=== PATIENT | female | born 1940 | race Caucasian/White ===

== ENCOUNTER 2020-04-28 16:50 | Emergency (ER) | payer MEDICARE, OTHER ==
[~2020-04-28] VITALS: Ht 162.6 cm; Wt 63.5 kg
[2020-04-28 16:52] VITALS: BP 160/53
--- NOTE | 2020-04-28 16:52 | NUR ---
79 YEAR OLD FEMALE BIBA FROM HOME FOR GENERALIZED BODY WEAKNESS FOR THE PAST COUPLE OF WEEKS. PT STATES THAT SHE HAD AN EPISODE OF WEAKNESS THAT WAS MUCH WORSE TODAY, AND VOMITTED SHORTLY AFTER. PT DENIES NAUSEA AT THIS TIME. PT DENIES ABDOMINAL PAIN. PT AOX4, BREATHING EVEN AND UNLABORED, SKIN WARM AND DRY. BED IN LOWEST POSITION, LOCKED, BED RAIL UPX1. PMH - COPD, OA, THROMBOMYALGIA ALLERGIES - NKA
[2020-04-28] MEDS ORDERED: cefTRIAXone 1,000 MG in DEXT 5% MINI-BAG PLUS 50 ML IV ONE (16:55)
--- NOTE | 2020-04-28 16:55 | NUR ---
BIBA TO BED 3.
--- NOTE | 2020-04-28 17:02 | NUR ---
WILLARD SWAB SENT TO LAB
[2020-04-28] MEDS ORDERED: cefTRIAXone 1,000 MG VIAL ONE (17:04)
[2020-04-28 17:20] LABS: BASOPHILS # (AUTO) 0.1 K/uL (0.00-0.22); EOSINOPHILS # (AUTO) 0.4 K/uL (0-0.4); EOSINOPHILS % (AUTO) 4.5 % (0.0-4.0); HEMATOCRIT 37.8 % (36-48); HEMOGLOBIN 12.6 g/dL (12.0-16.0); LYMPHOCYTES # (AUTO) 0.9 K/uL (2.5-16.5); LYMPHOCYTES % (AUTO) 11.5 % (20.5-51.1); MEAN CORPUSCULAR HEMOGLOBIN 29 pg (27-31); MEAN CORPUSCULAR HGB CONC 34 g/dL (33-37); MEAN CORPUSCULAR VOLUME 87.6 fL (80-94); MONOCYTES # (AUTO) 1.4 K/uL (0.8-1.0); MONOCYTES % (AUTO) 17.6 % (1.7-9.3); NEUTROPHILS # (AUTO) 5.4 K/uL (1.8-7.7); NEUTROPHILS % (AUTO) 65.4 % (42.2-75.2); PLATELET COUNT (AUTO) 436 K/uL (140-450); RED BLOOD CELL COUNT(AUTO) 4.31 MIL/uL (4.20-5.40); RED CELL DISTRIBUTION WIDTH 12.9 % (11.6-13.7); WHITE BLOOD COUNT (AUTO) 8.2 K/uL (4.8-10.8)
[2020-04-28] MEDS ORDERED: LORazepam 2 MG/ML VIAL IVP ONE (17:40)
--- NOTE | 2020-04-28 17:40 | NUR ---
PT UNABLE TO URINATE, ERMD MADE AWARE
[2020-04-28 17:43] LABS: ALBUMIN 3.3 g/dL (3.4-5.0); ASPARTATE AMINOTRANSFERASE 17 U/L (15-37); CARBON DIOXIDE 24.9 mmol/L (21-32); CHLORIDE 98 mmol/L (98-107); CREATININE 0.9 mg/dL (0.6-1.3); GLUCOSE 127 mg/dL (74-106); POTASSIUM 3.9 mmol/L (3.5-5.1); SODIUM SERUM 135 mmol/L (136-145); TOTAL BILIRUBIN 0.3 mg/dL (0.0-1.0); UREA NITROGEN, BLOOD 16 mg/dL (7-18)
--- NOTE | 2020-04-28 18:21 | NUR ---
PT STILL UNABLE TO URINATE, ERMD AWARE
--- NOTE | 2020-04-28 18:23 | NUR ---
PT ALERT AND AWAKE, BREATHING EVEN AND UNLABORED. NO DISTRESS NOTED. PT ON PHONE WITH FAMILY
[2020-04-28] MEDS ORDERED: NACL 0.9% 1,000 ML IV ONE (18:30)
[2020-04-28 18:57] LABS: APPEARANCE,URINE CLEAR (CLEAR); BILIRUBIN,URINE 1+ (NEGATIVE); BLOOD, URINE NEGATIVE (NEGATIVE); COLOR,URINE YELLOW (YELLOW); LEUKOCYTE ESTERASE ,URINE NEGATIVE (NEGATIVE); NITRITE, URINE NEGATIVE (NEGATIVE); PH,URINE 6.5 (5.0-9.0); UGLUCOSE NEGATIVE (NEGATIVE)
--- NOTE | 2020-04-28 19:14 | NUR ---
REPORT GIVEN TO NARENDRA MADRIGAL, TRANSFER OF CARE AT THIS TIME.
--- NOTE | 2020-04-28 19:14 | NUR ---
REPORT RECEIVED FROM ROBERTA MADRIGAL FOR CONTINUITY OF CARE
[2020-04-28 20:22] VITALS: BP 168/97
--- NOTE | 2020-04-28 20:22 | NUR ---
Patient discharged with v/s stable. Written and verbal after care instructions given and explained. Patient alert, oriented and verbalized understanding of instructions. Ambulatory with steady gait. All questions addressed prior to discharge. ID band removed. Patient advised to follow up with PMD. Rx of AZITHROMYCIN given. Patient educated on indication of medication including possible reaction and side effects. Opportunity to ask questions provided and answered.
== END 2020-04-28 20:22 | disposition home or self-care (01) ==
LOC: MED 16:50
DX: R53.1 Weakness (principal); J18.9 Pneumonia, unspecified organism; F17.210 Nicotine dependence, cigarettes, uncomplicated; I10 Essential (primary) hypertension; J44.9 Chronic obstructive pulmonary disease, unspecified; M79.10 Myalgia, unspecified site; Z20.828 Contact with and (suspected) exposure to other viral communicable diseases; Z90.711 Acquired absence of uterus with remaining cervical stump; Z98.82 Breast implant status
CPT/HCPCS: 36415; 71045; 80053; 81003; 83605; 83880; 84484; 85025; 87040; 87086; 87426; 93005; 96361; 96365; 99285; J0696; J2060; J7030

== ENCOUNTER 2020-10-20 14:49 | Emergency (ER) | payer MEDICARE ==
[~2020-10-20] VITALS: Ht 162.6 cm; Wt 64.9 kg
--- NOTE | 2020-10-20 14:50 | NUR ---
Patient BIBA BLS, transferred to bed 8. RN evaluating the patient at bedside.
[2020-10-20 14:55] VITALS: BP 149/64
--- NOTE | 2020-10-20 15:58 | NUR ---
technical agronomist at bedside.
[2020-10-20 16:19] LABS: ALBUMIN 3.6 g/dL (3.4-5.0); ANION GAP 12.5 (8-16); ASPARTATE AMINOTRANSFERASE 20 U/L (15-37); CARBON DIOXIDE 26.8 mmol/L (21-32); CHLORIDE 98 mmol/L (98-107); CREATININE 0.9 mg/dL (0.6-1.3); GLUCOSE 120 mg/dL (74-106); POTASSIUM 3.3 mmol/L (3.5-5.1); SODIUM SERUM 134 mmol/L (136-145); TOTAL BILIRUBIN 0.3 mg/dL (0.0-1.0); UREA NITROGEN, BLOOD 17 mg/dL (7-18)
[2020-10-20] MEDS ORDERED: POTASSIUM CHLORIDE 10 MEQ TABER PO ONE (16:40)
[2020-10-20] MEDS ORDERED: NACL 0.9% 500 ML IV ONE (16:40)
[2020-10-20 17:10] LABS: RED CELL DISTRIBUTION WIDTH 13.9 % (11.6-13.7)
[2020-10-20 17:16] LABS: WHITE BLOOD COUNT (AUTO) 15.2 K/uL (4.8-10.8)
[2020-10-20 17:17] LABS: HEMATOCRIT 38.7 % (36-48); MEAN CORPUSCULAR HEMOGLOBIN 30 pg (27-31); MEAN CORPUSCULAR HGB CONC 34 g/dL (33-37); MEAN CORPUSCULAR VOLUME 88.2 fL (80-94); PLATELET COUNT (AUTO) 380 K/uL (140-450); RED BLOOD CELL COUNT(AUTO) 4.38 MIL/uL (4.20-5.40)
[2020-10-20 17:50] LABS: APPEARANCE,URINE CLEAR (CLEAR); BILIRUBIN,URINE NEGATIVE (NEGATIVE); BLOOD, URINE NEGATIVE (NEGATIVE); COLOR,URINE DARK YELLOW (YELLOW); LEUKOCYTE ESTERASE ,URINE NEGATIVE (NEGATIVE); NITRITE, URINE NEGATIVE (NEGATIVE); PH,URINE 6.5 (5.0-9.0); UGLUCOSE NEGATIVE (NEGATIVE)
[2020-10-20 17:51] LABS: LYMPHOCYTES % (MANUAL) 7 % (20-46); MONOCYTES % (MANUAL) 13 % (5-12)
[2020-10-20] MEDS ORDERED: AZITHROMYCIN 250 MG TAB PO ONE (18:15)
[2020-10-20] MEDS ORDERED: AZIT250T4 PO (18:26)
--- NOTE | 2020-10-20 18:35 | NUR ---
IV removed, catheter intact and site benign. Applied folded 4x4 gauze and tape to stop bleeding.
[2020-10-20 18:51] VITALS: BP 139/79
--- NOTE | 2020-10-22 20:14 | NUR ---
LATE ENTRY- 0.9% NS BOLUS DISCONTINUED AT 1715
== END 2020-10-20 18:50 | disposition home or self-care (01) ==
LOC: MED 14:49
DX: J44.9 Chronic obstructive pulmonary disease, unspecified (principal); F17.210 Nicotine dependence, cigarettes, uncomplicated; Z71.6 Tobacco abuse counseling; Z90.49 Acquired absence of other specified parts of digestive tract
CPT/HCPCS: 36415; 71045; 80053; 81003; 83880; 84484; 85025; 93005; 96360; 99285; J7030

== ENCOUNTER 2021-07-06 09:04 | Emergency (ER) | payer MEDICARE ==
[~2021-07-06] VITALS: Ht 157.5 cm; Wt 70.3 kg
[~2021-07-06 09:04] MED LIST: AZIT250T4 PO
[2021-07-06 09:07] VITALS: BP 138/70
--- NOTE | 2021-07-06 09:39 | NUR ---
tent 1.
--- NOTE | 2021-07-06 09:40 | NUR ---
BIBA C/O SOB , FLU LIKE SYMPTOMS X2 WEEKS. RA 94% GIVEN ALBUTEROL TX AND ZOFRAN ODT BEHAVIOR SUPPORT SPECIALIST. PT GCS 15.
[2021-07-06] MEDS ORDERED: IPRATROPIUM 0.02% 0.5 MG/2.5 ML NEBU INH ONE (10:10)
[2021-07-06] MEDS ORDERED: predniSONE 20 MG TAB PO ONE (10:10)
[2021-07-06] MEDS ORDERED: ALBUTEROL 0.083% 2.5 MG/3 ML NEBU INH ONE (10:10)
--- NOTE | 2021-07-06 11:50 | NUR ---
TO ER BED 6 FROM TENT
--- NOTE | 2021-07-06 12:00 | NUR ---
PT RESTING IN BED, VISIBLE EQUAL RISE AND FALL OF CHEST, VSS, WILL CONTINUE TO MONITOR.
--- NOTE | 2021-07-06 12:29 | NUR ---
COLLECTED NOVEL SWAB, GAVE TO SECURITY INSTALLER AT PT BEDSIDE.
[2021-07-06 13:09] LABS: BASOPHILS % (AUTO) 0.1 % (0.0-2.0); EOSINOPHILS % (AUTO) 0.1 % (0.0-4.0); HEMATOCRIT 37.8 % (36-48); HEMOGLOBIN 12.8 g/dL (12.0-16.0); LYMPHOCYTES # (AUTO) 0.2 K/uL (2.5-16.5); LYMPHOCYTES % (AUTO) 3.5 % (20.5-51.1); MEAN CORPUSCULAR HEMOGLOBIN 29 pg (27-31); MEAN CORPUSCULAR HGB CONC 34 g/dL (33-37); MEAN CORPUSCULAR VOLUME 85.5 fL (80-94); MONOCYTES # (AUTO) 0.6 K/uL (0.8-1.0); MONOCYTES % (AUTO) 10.2 % (1.7-9.3); NEUTROPHILS # (AUTO) 5.4 K/uL (1.8-7.7); NEUTROPHILS % (AUTO) 86.1 % (42.2-75.2); PLATELET COUNT (AUTO) 341 K/uL (140-450); RED BLOOD CELL COUNT(AUTO) 4.41 MIL/uL (4.20-5.40); WHITE BLOOD COUNT (AUTO) 6.3 K/uL (4.8-10.8)
[2021-07-06] MEDS ORDERED: PRED20TA5 PO (13:49)
[2021-07-06] MEDS ORDERED: ALBU0.0912 IH (13:50)
--- NOTE | 2021-07-06 15:08 | NUR ---
PT RESTING IN BED, VSS, WILL CONTINUE TO MONITOR.
[2021-07-06 15:49] VITALS: BP 126/73
--- NOTE | 2021-07-06 15:49 | NUR ---
Patient discharged with v/s stable. Written and verbal after care instructions given FOR COPD EXACERBATION and explained. Patient alert, oriented and verbalized understanding of instructions. Ambulatory with steady gait. All questions addressed prior to discharge. ID band removed. Patient advised to follow up with PMD. Rx of PREDNISONE AND ALBUTEROL given. Patient educated on indication of medication including possible reaction and side effects. Opportunity to ask questions provided and answered.
[2021-07-06] MEDS ORDERED: ONDA8TAB87 PO (16:01)
== END 2021-07-06 15:49 | disposition home or self-care (01) ==
LOC: MED 09:04
DX: J45.901 Unspecified asthma with (acute) exacerbation (principal); I11.0 Hypertensive heart disease with heart failure; F17.210 Nicotine dependence, cigarettes, uncomplicated; Z20.822 Contact with and (suspected) exposure to COVID-19
CPT/HCPCS: 71045; 83880; 84484; 85025; 87426; 93005; 94640; 99285; J7512; J7613; J7644; Q0092; U0003

== ENCOUNTER 2021-07-08 07:43 | Emergency (ER) | payer MEDICARE ==
[~2021-07-08] VITALS: Ht 157.5 cm; Wt 70.3 kg
[~2021-07-08 07:43] MED LIST changes: +ALBU0.0912 IH; +ONDA8TAB87 PO; +PRED20TA5 PO
[2021-07-08 07:59] VITALS: BP 134/70
--- NOTE | 2021-07-08 08:17 | NUR ---
PT TAKEN TO ER BED 7
--- NOTE | 2021-07-08 08:22 | NUR ---
DR MARVIN AT BEDSIDE EVALUATING PT
[2021-07-08] MEDS ORDERED: ALBUTEROL SULFATE/IPRATROPIU 3 ML SOL IH ONE (08:35)
--- NOTE | 2021-07-08 08:39 | NUR ---
PT TAKEN TO CT VIA [place].
--- NOTE | 2021-07-08 08:45 | NUR ---
PT BIB ALS RUN C/O SOB AND ABDOMINAL PAIN X4 DAYS PT SEEN IN ED X2 FOR SIMILAR COMPLAINTS. AOX4. PLACED ON 2L NC SATURATION 97%. 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 NAD. SAFETY MAINTAINED.
[2021-07-08 09:50] LABS: BASOPHILS % (AUTO) 0.1 % (0.0-2.0); EOSINOPHILS % (AUTO) 0.1 % (0.0-4.0); HEMATOCRIT 36.9 % (36-48); HEMOGLOBIN 12.6 g/dL (12.0-16.0); LYMPHOCYTES # (AUTO) 0.4 K/uL (2.5-16.5); LYMPHOCYTES % (AUTO) 4.2 % (20.5-51.1); MEAN CORPUSCULAR HEMOGLOBIN 29 pg (27-31); MEAN CORPUSCULAR HGB CONC 34 g/dL (33-37); MEAN CORPUSCULAR VOLUME 85.3 fL (80-94); MONOCYTES # (AUTO) 1.6 K/uL (0.8-1.0); NEUTROPHILS # (AUTO) 8.6 K/uL (1.8-7.7); NEUTROPHILS % (AUTO) 80.6 % (42.2-75.2); PLATELET COUNT (AUTO) 397 K/uL (140-450); RED BLOOD CELL COUNT(AUTO) 4.33 MIL/uL (4.20-5.40); RED CELL DISTRIBUTION WIDTH 13.7 % (11.6-13.7); WHITE BLOOD COUNT (AUTO) 10.6 K/uL (4.8-10.8)
[2021-07-08 10:18] LABS: ALBUMIN 2.8 g/dL (3.4-5.0); ANION GAP 16.3 (8-16); ASPARTATE AMINOTRANSFERASE 44 U/L (15-37); CARBON DIOXIDE 22.8 mmol/L (21-32); CHLORIDE 98 mmol/L (98-107); CREATININE 0.7 mg/dL (0.6-1.3); GLUCOSE 113 mg/dL (74-106); LIPASE 42 U/L (73-393); POTASSIUM 3.1 mmol/L (3.5-5.1); SODIUM SERUM 134 mmol/L (136-145); TOTAL BILIRUBIN 0.3 mg/dL (0.0-1.0); UREA NITROGEN, BLOOD 16 mg/dL (7-18)
[2021-07-08] MEDS ORDERED: POTASSIUM CHLORIDE 20% 40 MEQ/15 ML UDC PO ONE (11:20)
[2021-07-08] MEDS ORDERED: FAMOTIDINE 20 MG TAB PO ONE (11:25)
[2021-07-08] MEDS ORDERED: methylPREDNISolone SS 40 MG in WATER STERILE 1 ML IV ONE (11:25)
[2021-07-08] MEDS ORDERED: ONDANSETRON 4 MG/2 ML VIAL IVP ONE (11:25)
--- NOTE | 2021-07-08 12:30 | NUR ---
PT REQUESTING TO GO HOME, DR MARVIN MADE AWARE.
[2021-07-08] MEDS ORDERED: PRED50TA2 PO (12:40)
[2021-07-08] MEDS ORDERED: MAG355OR2 PO (12:40)
[2021-07-08] MEDS ORDERED: AZIT250T4 PO (12:40)
[2021-07-08] MEDS ORDERED: ONDA-188 PO (12:40)
[2021-07-08] MEDS ORDERED: POTASSIUM CHLORIDE 20% 40 MEQ/15 ML UDC ONE (13:11)
[2021-07-08] MEDS ORDERED: methylPREDNISolone SS 40 MG/ML VIAL ONE (13:11)
[2021-07-08] MEDS ORDERED: ONDANSETRON 4 MG/2 ML VIAL ONE (13:11)
[2021-07-08] MEDS ORDERED: FAMOTIDINE 20 MG TAB ONE (13:12)
--- NOTE | 2021-07-08 14:20 | NUR ---
Patient discharged with v/s stable. Written and verbal after care instructions given and explained. Patient verbalized understanding. Ambulatory with steady gait. All questions addressed prior to discharge. Advised to follow up with PMD.
[2021-07-08 14:21] VITALS: BP 116/70
== END 2021-07-08 14:20 | disposition home or self-care (01) ==
LOC: MED 07:43
DX: J44.1 Chronic obstructive pulmonary disease with (acute) exacerbation (principal); K80.20 Calculus of gallbladder without cholecystitis without obstruction; F17.210 Nicotine dependence, cigarettes, uncomplicated; I11.9 Hypertensive heart disease without heart failure
CPT/HCPCS: 36415; 36600; 71045; 74176; 76705; 80053; 82803; 83605; 83690; 83880; 84484; 85025; 87040; 93005; 94640; 96374; 96375; 99285; J2405; J2920; Q0092; 96365

== ENCOUNTER 2022-05-20 07:24 | Emergency (ER) | payer MEDICARE ==
[~2022-05-20] VITALS: Ht 162.6 cm; Wt 52.2 kg
[~2022-05-20 07:24] MED LIST changes: +MAG355OR2 PO; +ONDA-188 PO; +PRED50TA2 PO
[2022-05-20 07:26] VITALS: BP 137/67
--- NOTE | 2022-05-20 07:35 | NUR ---
Pt ambulated to wheelchair, placed to chair C.
--- NOTE | 2022-05-20 07:45 | NUR ---
Dr. Avila evaluating pt at bedside
[2022-05-20] MEDS ORDERED: NACL 0.9% 500 ML IV SCH (07:50)
--- NOTE | 2022-05-20 07:50 | NUR ---
81 y/o F BIBA from home c/o generalized weakness x 1 days, 1 day SOB upon exertion, nausea, runny nose, chronic neck pain. Per EMS, daughter states patient experienced "stroke like symptoms" 9 days ago, experiencing left hand/left arm weakness/movement. Pt c/o tingling to left finger tips. Pt placed onto wheelchair and into chair C. Pt states chronic neck pain from osteoarthritis. Pt denies fever, chills, chest pain, abdominal pain, dysuria, sick household members. Moderna X 2. No meds prior to arrival. PMH: COPD, TIA, HLD, HTN Meds: albuterol inhaler, atorvastatin, amlodipine, fluoxetine, prilosec NKDA Sx: hysterectomy
--- NOTE | 2022-05-20 07:53 | NUR ---
EMT at bedside for EKG
--- NOTE | 2022-05-20 08:01 | NUR ---
Pt W/C assisted to restroom by EMT. Top hat given.
--- NOTE | 2022-05-20 08:09 | NUR ---
Pt unable to void at this time.
--- NOTE | 2022-05-20 08:10 | NUR ---
Pt W/C assisted to CT
--- NOTE | 2022-05-20 08:27 | NUR ---
Pt returned from CT via wheelchair
--- NOTE | 2022-05-20 08:38 | NUR ---
MOVED TO ER BED 2
--- NOTE | 2022-05-20 09:17 | NUR ---
Additional meds: fluticasone/salmeterol
[2022-05-20 10:02] LABS: BASOPHILS # (AUTO) 0.1 K/uL (0.00-0.22); BASOPHILS % (AUTO) 0.5 % (0.0-2.0); EOSINOPHILS # (AUTO) 0.2 K/uL (0-0.4); EOSINOPHILS % (AUTO) 1.5 % (0.0-4.0); HEMATOCRIT 36.9 % (36-48); HEMOGLOBIN 12.2 g/dL (12.0-16.0); LYMPHOCYTES # (AUTO) 0.5 K/uL (2.5-16.5); LYMPHOCYTES % (AUTO) 3.4 % (20.5-51.1); MEAN CORPUSCULAR HEMOGLOBIN 30 pg (27-31); MEAN CORPUSCULAR HGB CONC 33 g/dL (33-37); MONOCYTES # (AUTO) 1.7 K/uL (0.8-1.0); MONOCYTES % (AUTO) 11.5 % (1.7-9.3); NEUTROPHILS % (AUTO) 83.1 % (42.2-75.2); PLATELET COUNT (AUTO) 368 K/uL (140-450); RED CELL DISTRIBUTION WIDTH 14.2 % (11.6-13.7); WHITE BLOOD COUNT (AUTO) 14.5 K/uL (4.8-10.8)
--- NOTE | 2022-05-20 10:12 | NUR ---
pt swabbed for covid, rsv and flu at this time
[2022-05-20 10:33] LABS: ALBUMIN 3.1 g/dL (3.4-5.0); ANION GAP 13.4 (8-16); ASPARTATE AMINOTRANSFERASE 21 U/L (15-37); CARBON DIOXIDE 27.3 mmol/L (21-32); CHLORIDE 102 mmol/L (98-107); CREATININE 0.9 mg/dL (0.6-1.3); GLUCOSE 99 mg/dL (74-106); POTASSIUM 3.7 mmol/L (3.5-5.1); SODIUM SERUM 139 mmol/L (136-145); TOTAL BILIRUBIN 0.6 mg/dL (0.0-1.0); UREA NITROGEN, BLOOD 17 mg/dL (7-18)
--- NOTE | 2022-05-20 10:59 | NUR ---
ALL PAYNE called for update, daughter notified at this time
[2022-05-20 11:50] LABS: RSV NEGATIVE (NEGATIVE)
--- NOTE | 2022-05-20 12:07 | NUR ---
pt ambulated to bathroom with minimal assist, pt has soft, normal bm at this time and voided dark yellow, clear urine. urine sample collected and sent to lab.
[2022-05-20 12:37] LABS: APPEARANCE,URINE CLEAR (CLEAR); BILIRUBIN,URINE NEGATIVE (NEGATIVE); BLOOD, URINE NEGATIVE (NEGATIVE); COLOR,URINE YELLOW (YELLOW); LEUKOCYTE ESTERASE ,URINE 1+ (NEGATIVE); NITRITE, URINE NEGATIVE (NEGATIVE); UGLUCOSE NEGATIVE (NEGATIVE)
[2022-05-20 12:49] LABS: RBC,URINE NONE SEEN /HPF (0-5)
[2022-05-20] MEDS ORDERED: NACL 0.9% 500 ML IV ONE (13:20)
[2022-05-20] MEDS ORDERED: ASPIRIN 81 MG TAB.CHEW PO ONE (13:20)
[2022-05-20] MEDS ORDERED: cefTRIAXone 1,000 MG VIAL ONE (13:24)
--- NOTE | 2022-05-20 14:51 | NUR ---
pt consents to transfer to [facility], transfer consent signed at this time
[2022-05-20] MEDS ORDERED: FLUO40CA6 PO (15:59)
[2022-05-20] MEDS ORDERED: AMAN-72 PO (15:59)
[2022-05-20] MEDS ORDERED: FLUoxetine 20 MG CAP PO STA (16:05)
--- NOTE | 2022-05-20 16:44 | NUR ---
Patient to be transferred to [facility]. Is being transferred due to higher level of care. Receiving facility has accepting physician and available space. ER physician has signed transfer form. Patient or responsible republican has agreed to transfer and signed form. Patient belongings inventoried and will be sent with patient. Copy of nursing notes, lab reports, EKG, Physicians Orders and X-rays to be sent with patient. Report called to Daxa MADRIGAL at receiving facility. ambulance service has been called for transfer. ETA is 1700.
[2022-05-20 16:45] VITALS: BP 118/57
--- NOTE | 2022-05-20 18:43 | NUR ---
called daughter twice, no answer at this time
--- NOTE | 2022-05-20 19:50 | NUR ---
[facility] TRANSPORT AT BEDSIDE
--- NOTE | 2022-05-20 19:55 | NUR ---
[facility] HERE FOR PT TRANSFER TO [facility]
--- NOTE | 2022-05-20 20:00 | NUR ---
Monty farah in ED - 05/20/22 at 2137 by DOREEN AWAKE, ALERT AND VERY PLEASANT. DENIES ANY COMPLAINTS. WAITING FOR TRANSFER TO [facility]
--- NOTE | 2022-05-20 20:09 | NUR ---
PT TAKEN BY [facility] TRANSPORT TO [facility]
== END 2022-05-20 20:09 | disposition short-term general hospital (02) ==
LOC: MED 07:24
DX: I63.9 Cerebral infarction, unspecified (principal); Z20.822 Contact with and (suspected) exposure to COVID-19; B34.9 Viral infection, unspecified; R09.02 Hypoxemia; J44.9 Chronic obstructive pulmonary disease, unspecified; N39.0 Urinary tract infection, site not specified; I10 Essential (primary) hypertension; E78.5 Hyperlipidemia, unspecified; F17.200 Nicotine dependence, unspecified, uncomplicated; Z79.899 Other long term (current) drug therapy; Z90.710 Acquired absence of both cervix and uterus
CPT/HCPCS: 36415; 36600; 70450; 71045; 80053; 81001; 82803; 83605; 83880; 84484; 85025; 87040; 87086; 87420; 87426; 87804; 93005; 96361; 96365; 99285; J0696; J7030

== ENCOUNTER 2022-09-30 09:01 | Emergency (ER) | payer MEDICARE ==
[~2022-09-30] VITALS: Ht 162.6 cm; Wt 45.4 kg
[~2022-09-30 09:01] MED LIST changes: +AMAN-72 PO; +FLUO40CA6 PO
[2022-09-30 09:03] VITALS: BP 149/61
[2022-09-30] MEDS ORDERED: MECLIZINE 25 MG TAB PO ONE (09:10)
[2022-09-30] MEDS ORDERED: ONDANSETRON 4 MG/2 ML VIAL IVP ONE (09:10)
[2022-09-30] MEDS ORDERED: NACL 0.9% 1,000 ML IV ONE ×2 (09:10→09:35)
--- NOTE | 2022-09-30 09:22 | NUR ---
BLOOD DRAWN BY PHLEB
[2022-09-30 09:29] LABS: BASOPHILS # (AUTO) 0.1 K/uL (0.00-0.22); BASOPHILS % (AUTO) 0.6 % (0.0-2.0); EOSINOPHILS # (AUTO) 0.6 K/uL (0-0.4); EOSINOPHILS % (AUTO) 6.8 % (0.0-4.0); HEMATOCRIT 37.2 % (36-48); HEMOGLOBIN 12.4 g/dL (12.0-16.0); LYMPHOCYTES # (AUTO) 0.9 K/uL (2.5-16.5); LYMPHOCYTES % (AUTO) 9.6 % (20.5-51.1); MEAN CORPUSCULAR HEMOGLOBIN 30 pg (27-31); MEAN CORPUSCULAR HGB CONC 33 g/dL (33-37); MEAN CORPUSCULAR VOLUME 90.3 fL (80-94); NEUTROPHILS # (AUTO) 6.5 K/uL (1.8-7.7); PLATELET COUNT (AUTO) 418 K/uL (140-450); RED BLOOD CELL COUNT(AUTO) 4.12 MIL/uL (4.20-5.40); RED CELL DISTRIBUTION WIDTH 13.9 % (11.6-13.7)
[2022-09-30] MEDS ORDERED: FLUO40CA6 PO (09:40)
--- NOTE | 2022-09-30 09:47 | NUR ---
PT SWABBED FOR COVID
[2022-09-30 09:59] LABS: ALBUMIN 3.3 g/dL (3.4-5.0); ANION GAP 12.7 (8-16); ASPARTATE AMINOTRANSFERASE 24 U/L (15-37); CARBON DIOXIDE 27.5 mmol/L (21-32); CHLORIDE 102 mmol/L (98-107); CREATININE 0.8 mg/dL (0.6-1.3); GLUCOSE 110 mg/dL (74-106); LIPASE 96 U/L (73-393); POTASSIUM 3.2 mmol/L (3.5-5.1); SODIUM SERUM 139 mmol/L (136-145); TOTAL BILIRUBIN 0.4 mg/dL (0.0-1.0); UREA NITROGEN, BLOOD 12 mg/dL (7-18)
--- NOTE | 2022-09-30 10:05 | NUR ---
PATIENT PICKED UP BY RAD TO GET CT
--- NOTE | 2022-09-30 10:39 | NUR ---
PATIENT STATES MEDS EFFECTIVE, NAUSEA DECREASED. STATES FEELING A LOT BETTER.
[2022-09-30] MEDS ORDERED: POTASSIUM CHLORIDE 20% 40 MEQ/15 ML UDC PO ONE (11:25)
--- NOTE | 2022-09-30 11:42 | NUR ---
PLACED NON SLIP SOCKS ON PATIENT, ESCORTED PATIENT TO RESTROOM. ABLE TO AMBULATE WITH MINIMUM ASSISTANCE. SOB NOTED UPON EXERTION
--- NOTE | 2022-09-30 11:58 | NUR ---
ATTEMPTED TO CALL [facility] PER PATIENT'S REQUEST ([phone]) BUT NO ANSWER
--- NOTE | 2022-09-30 11:58 | NUR ---
PT STATES THAT SHE WANTS TO CALL [facility], BOYFRIEND OF RELATIVE, ATTEMPTED TO CALL, NO RESPONSE
--- NOTE | 2022-09-30 12:01 | NUR ---
SPOKE TO WM RN AT [facility], GAVE REPORT ON PATIENT. ETA FOR HEADWAITRESS 1230 PATIENT AWARE AND ACKNOWLEDGES TRANSPORT. PATIENT ALERT, VITALS STABLE
--- NOTE | 2022-09-30 12:10 | NUR ---
[facility] AT BEDSIDE FOR TRANSPORT
[2022-09-30 12:20] VITALS: BP 136/56
--- NOTE | 2022-09-30 12:26 | NUR ---
Patient to be transferred to [facility] ER. Is being transferred due to INSURANCE. Receiving facility has accepting physician and available space. ER physician has signed transfer form. Patient or responsible green party has agreed to transfer and signed form. Patient belongings inventoried and will be sent with patient. Copy of nursing notes, lab reports, EKG, Physicians Orders and X-rays to be sent with patient. Report called to WM MADRIGAL at receiving facility. [facility] ambulance service PICKED UP PATIENT
== END 2022-09-30 12:20 | disposition short-term general hospital (02) ==
LOC: MED 09:01
DX: R42 Dizziness and giddiness (principal); Z20.822 Contact with and (suspected) exposure to COVID-19; E87.6 Hypokalemia; R26.89 Other abnormalities of gait and mobility; J44.9 Chronic obstructive pulmonary disease, unspecified; I10 Essential (primary) hypertension; J45.909 Unspecified asthma, uncomplicated; I25.10 Atherosclerotic heart disease of native coronary artery without angina pectoris; F17.200 Nicotine dependence, unspecified, uncomplicated; Z79.899 Other long term (current) drug therapy
CPT/HCPCS: 36415; 70450; 70496; 70498; 71045; 80053; 83690; 84484; 85025; 87426; 93005; 96361; 96374; 99285; J2405; J7030; J8597; Q9967

== ENCOUNTER 2023-07-14 15:33 | Emergency (ER) | payer MEDICARE ==
[~2023-07-14] VITALS: Ht 152.4 cm; Wt 49.9 kg
[2023-07-14] MEDS ORDERED: IPRATROPIUM 0.02% 0.5 MG/2.5 ML NEBU INH ONE (15:45)
[2023-07-14] MEDS ORDERED: ALBUTEROL 0.083% 2.5 MG/3 ML NEBU INH ONE (15:45)
[2023-07-14 15:56] VITALS: BP 113/67; PULSE 112; RESP 22; TEMP 99; O2SAT 98
[2023-07-14 16:00] VITALS: PULSE 118; RESP 25; O2SAT 97
[2023-07-14 16:12] LABS: BASOPHILS # (AUTO) 0.1 K/uL (0.00-0.22); BASOPHILS % (AUTO) 0.4 % (0.0-2.0); EOSINOPHILS # (AUTO) 0.1 K/uL (0-0.4); EOSINOPHILS % (AUTO) 0.5 % (0.0-4.0); HEMATOCRIT 38.7 % (36-48); HEMOGLOBIN 12.8 g/dL (12.0-16.0); LYMPHOCYTES # (AUTO) 0.6 K/uL (2.5-16.5); LYMPHOCYTES % (AUTO) 2.5 % (20.5-51.1); MEAN CORPUSCULAR HEMOGLOBIN 29 pg (27-31); MEAN CORPUSCULAR HGB CONC 33 g/dL (33-37); MEAN CORPUSCULAR VOLUME 87.4 fL (80-94); MONOCYTES # (AUTO) 2.7 K/uL (0.8-1.0); MONOCYTES % (AUTO) 11.7 % (1.7-9.3); NEUTROPHILS # (AUTO) 19.5 K/uL (1.8-7.7); NEUTROPHILS % (AUTO) 84.9 % (42.2-75.2); PLATELET COUNT (AUTO) 516 K/uL (140-450); RED BLOOD CELL COUNT(AUTO) 4.42 MIL/uL (4.20-5.40); RED CELL DISTRIBUTION WIDTH 14.4 % (11.6-13.7); WHITE BLOOD COUNT (AUTO) 22.9 K/uL (4.8-10.8)
[2023-07-14 16:28] LABS: ALANINE AMINOTRANSFERASE 15 U/L (12-78); ALBUMIN 2.9 g/dL (3.4-5.0); ALKALINE PHOSPHATASE 112 U/L (50-136); ASPARTATE AMINOTRANSFERASE 14 U/L (15-37); CALCIUM 8.5 mg/dL (8.5-10.1); CHLORIDE 103 mmol/L (98-107); GLUCOSE 158 mg/dL (74-106); SODIUM SERUM 140 mmol/L (136-145); TOTAL BILIRUBIN 0.6 mg/dL (0.0-1.0); TOTAL PROTEIN, SERUM 7.1 g/dL (6.4-8.2); UREA NITROGEN, BLOOD 15 mg/dL (7-18)
[2023-07-14 17:07] LABS: FLU A ANTIGEN negative (NEGATIVE); FLU B ANTIGEN NEGATIVE (NEGATIVE)
[2023-07-14] MEDS ORDERED: LORazepam 2 MG/ML VIAL IVP ONE (20:05)
[2023-07-14 21:59] LABS: APPEARANCE,URINE SL CLOUDY (CLEAR); BILIRUBIN,URINE NEGATIVE (NEGATIVE); BLOOD, URINE NEGATIVE (NEGATIVE); COLOR,URINE YELLOW (YELLOW); LEUKOCYTE ESTERASE ,URINE TRACE (NEGATIVE); NITRITE, URINE NEGATIVE (NEGATIVE); PH,URINE 6.5 (5.0-9.0); PROTEIN,URINE TRACE (NEGATIVE); UGLUCOSE NEGATIVE (NEGATIVE); UROBILINOGEN,URINE 0.2 EU/dL (0.2 - 1)
[2023-07-14 22:07] LABS: BACTERIA,URINE 10-30 (MOD) /HPF (None Seen); RBC,URINE 0-5 /HPF (0-5); SQUAMOUS EPITHELIAL CELL,UR 0-3 (FEW) /LPF (0-3 (FEW))
[2023-07-14 22:30] VITALS: BP 146/66; PULSE 112; RESP 30; TEMP 98.2; O2SAT 95
== END 2023-07-14 22:30 | disposition short-term general hospital (02) ==
LOC: MED 15:33
DX: J44.1 Chronic obstructive pulmonary disease with (acute) exacerbation (principal); Z20.822 Contact with and (suspected) exposure to COVID-19; I10 Essential (primary) hypertension; Z79.899 Other long term (current) drug therapy; Z79.2 Long term (current) use of antibiotics
CPT/HCPCS: 36415; 71045; 80053; 81001; 83880; 84484; 85025; 87086; 87186; 87426; 87804; 93005; 94640; 96374; 99291; J2060; J7613; J7644

== ENCOUNTER 2023-08-16 01:47 | Emergency (ER) | payer MEDICARE ==
[~2023-08-16] VITALS: Ht 162.6 cm; Wt 49.9 kg
[2023-08-16 01:56] VITALS: BP 141/63; PULSE 83; RESP 22; TEMP 98; O2SAT 97
[2023-08-16 02:50] VITALS: O2SAT 97
[2023-08-16 02:53] LABS: BASOPHILS # (AUTO) 0.1 K/uL (0.00-0.22); BASOPHILS % (AUTO) 1.1 % (0.0-2.0); EOSINOPHILS # (AUTO) 0.6 K/uL (0-0.4); EOSINOPHILS % (AUTO) 5.6 % (0.0-4.0); HEMATOCRIT 35.8 % (36-48); HEMOGLOBIN 11.9 g/dL (12.0-16.0); LYMPHOCYTES # (AUTO) 1.4 K/uL (2.5-16.5); LYMPHOCYTES % (AUTO) 13.5 % (20.5-51.1); MEAN CORPUSCULAR HEMOGLOBIN 29 pg (27-31); MEAN CORPUSCULAR HGB CONC 33 g/dL (33-37); MEAN CORPUSCULAR VOLUME 87.5 fL (80-94); MONOCYTES # (AUTO) 1.6 K/uL (0.8-1.0); MONOCYTES % (AUTO) 15.1 % (1.7-9.3); NEUTROPHILS # (AUTO) 6.9 K/uL (1.8-7.7); NEUTROPHILS % (AUTO) 64.7 % (42.2-75.2); PLATELET COUNT (AUTO) 665 K/uL (140-450); RED BLOOD CELL COUNT(AUTO) 4.09 MIL/uL (4.20-5.40); RED CELL DISTRIBUTION WIDTH 15.6 % (11.6-13.7); WHITE BLOOD COUNT (AUTO) 10.7 K/uL (4.8-10.8)
[2023-08-16] MEDS: NACL 0.9% 1,000 ML IV ONE (02:54)
[2023-08-16 03:01] LABS: ANION GAP 7.2 (8-16); CALCIUM 9.1 mg/dL (8.5-10.1); CARBON DIOXIDE 30.9 mmol/L (21-32); CHLORIDE 104 mmol/L (98-107); CREATININE 0.8 mg/dL (0.6-1.3); GLUCOSE 102 mg/dL (74-106); POTASSIUM 4.1 mmol/L (3.5-5.1); SODIUM SERUM 138 mmol/L (136-145); UREA NITROGEN, BLOOD 18 mg/dL (7-18)
[2023-08-16 03:05] LABS: LACTIC ACID 1.2 mmol/L (0.4-2.0)
[2023-08-16 03:18] LABS: APPEARANCE,URINE SL CLOUDY (CLEAR); BILIRUBIN,URINE NEGATIVE (NEGATIVE); BLOOD, URINE TRACE-I (NEGATIVE); LEUKOCYTE ESTERASE ,URINE 3+ (NEGATIVE); NITRITE, URINE POSITIVE (NEGATIVE); PROTEIN,URINE 2+ (NEGATIVE); UGLUCOSE TRACE (NEGATIVE)
[2023-08-16 03:28] LABS: COLOR,URINE ORANGE (YELLOW)
[2023-08-16 03:31] LABS: BACTERIA,URINE 3+ /HPF (None Seen); RBC,URINE 0-5 /HPF (0-5); SQUAMOUS EPITHELIAL CELL,UR 0-3 (FEW) /LPF (0-3 (FEW)); WBC,URINE TOO MANY TO COUNT /HPF (0-5)
[2023-08-16] MEDS ORDERED: cefTRIAXone 1,000 MG VIAL ONE (04:23)
[2023-08-16] MEDS ORDERED: CEPH-588 PO (04:26)
[2023-08-16 06:49] VITALS: BP 122/67; PULSE 95; RESP 13; TEMP 98.2; O2SAT 96
[2023-08-18] MEDS ORDERED: CIPR500T4 PO (17:21)
== END 2023-08-16 06:49 | disposition home or self-care (01) ==
LOC: MED 01:47
DX: N39.0 Urinary tract infection, site not specified (principal); R53.1 Weakness; J44.9 Chronic obstructive pulmonary disease, unspecified; I10 Essential (primary) hypertension; F17.200 Nicotine dependence, unspecified, uncomplicated; Z90.710 Acquired absence of both cervix and uterus; Z79.899 Other long term (current) drug therapy
CPT/HCPCS: 36415; 71045; 80048; 81001; 83605; 84484; 85025; 87040; 87086; 93005; 96361; 96365; 99285; J0696; J7030; Q0092

== ENCOUNTER 2023-12-19 23:06 | Emergency (ER) | payer MEDICARE ==
[~2023-12-19] VITALS: Ht 160 cm; Wt 49.0 kg
[2023-12-19 23:06] VITALS: BP 125/80; PULSE 101; RESP 25; TEMP 98.1; O2SAT 93
[~2023-12-19 23:06] MED LIST changes: +CIPR500T4 PO
[2023-12-19] MEDS: ALBUTEROL SULFATE/IPRATROPIU 3 ML SOL IH ONE (23:45)
[2023-12-19 23:46] VITALS: PULSE 97; PULSE 98; RESP 22; RESP 24; O2SAT 92
[2023-12-20 00:07] LABS: BASOPHILS % (AUTO) 0.4 % (0.0-2.0); EOSINOPHILS # (AUTO) 0.1 K/uL (0-0.4); HEMATOCRIT 33.4 % (36-48); HEMOGLOBIN 10.8 g/dL (12.0-16.0); LYMPHOCYTES # (AUTO) 0.5 K/uL (2.5-16.5); LYMPHOCYTES % (AUTO) 3.5 % (20.5-51.1); MEAN CORPUSCULAR HEMOGLOBIN 28 pg (27-31); MEAN CORPUSCULAR HGB CONC 32 g/dL (33-37); MEAN CORPUSCULAR VOLUME 85.3 fL (80-94); MONOCYTES # (AUTO) 2.4 K/uL (0.8-1.0); NEUTROPHILS % (AUTO) 76.9 % (42.2-75.2); PLATELET COUNT (AUTO) 416 K/uL (140-450); RED BLOOD CELL COUNT(AUTO) 3.92 MIL/uL (4.20-5.40); RED CELL DISTRIBUTION WIDTH 15.7 % (11.6-13.7)
[2023-12-20] MEDS: LORazepam 2 MG/ML VIAL IVP ONE (00:11)
[2023-12-20 00:22] LABS: CARBON DIOXIDE 26.8 mmol/L (21-32); CHLORIDE 101 mmol/L (98-107); CREATININE 0.9 mg/dL (0.6-1.3); GLUCOSE 125 mg/dL (74-106); POTASSIUM 3.8 mmol/L (3.5-5.1); SODIUM SERUM 135 mmol/L (136-145); UREA NITROGEN, BLOOD 24 mg/dL (7-18)
[2023-12-20 00:22] LABS: BLOOD GAS PCO2 40.6 mmHg (35-45); BLOOD GAS PH 7.348 (7.35-7.45); BLOOD GAS PO2 79.9 mmHg (75-100)
[2023-12-20 00:23] LABS: BLOOD GAS BASE EXCESS -3.6 mmol/L (-2.0-2.0); BLOOD GAS HCO3 21.8 mmol/L (22-26); BLOOD GAS O2 SAT% 93.9 % (92.0-98.5)
[2023-12-20 00:52] LABS: MONOCYTES % (AUTO) 18.2 % (1.7-9.3)
[2023-12-20 01:00] LABS: CALCIUM 8.5 mg/dL (8.5-10.1)
[2023-12-20] MEDS: methylPREDNISolone SS 125 MG/2 ML VIAL IVP ONE (01:35)
[2023-12-20] MEDS: ALBUTEROL SULFATE/IPRATROPIU 3 ML SOL IH ONE (01:43)
[2023-12-20 01:45] VITALS: PULSE 95; RESP 28; O2SAT 95
[2023-12-20] MEDS ORDERED: PRED20TA5 PO (03:14)
[2023-12-20] MEDS ORDERED: ALBU0.0912 IH (03:14)
[2023-12-20] MEDS ORDERED: AZIT250T4 PO (03:14)
[2023-12-20] MEDS ORDERED: PRON INH (03:14)
[2023-12-20] MEDS ORDERED: NICO1PAT16 TP (03:14)
[2023-12-20 04:00] VITALS: BP 107/56; PULSE 77; RESP 28; O2SAT 97
[2023-12-21] MEDS ORDERED: CIPR500T4 PO (19:10)
[2023-12-21] MEDS ORDERED: LORA-476 PO (20:42)
== END 2023-12-20 04:00 | disposition home or self-care (01) ==
LOC: MED 23:06
DX: J44.1 Chronic obstructive pulmonary disease with (acute) exacerbation (principal); J20.9 Acute bronchitis, unspecified; I10 Essential (primary) hypertension; Z79.899 Other long term (current) drug therapy
CPT/HCPCS: 36415; 71045; 80048; 82803; 84484; 85025; 94640; 96374; 96375; 99284; J2060; J2919; 36600

== ENCOUNTER 2023-12-21 12:53 | Emergency (ER) | payer MEDICARE ==
[~2023-12-21] VITALS: Ht 162.6 cm; Wt 49.9 kg
[~2023-12-21 12:53] MED LIST changes: +NICO1PAT16 TP; +PRON INH
[2023-12-21 13:00] VITALS: BP 114/76; PULSE 105; RESP 30; TEMP 97.5; O2SAT 97
[2023-12-21] MEDS: ALBUTEROL 0.083% 2.5 MG/3 ML NEBU INH ONE (13:05)
[2023-12-21 13:06] VITALS: PULSE 116; RESP 32; O2SAT 96
[2023-12-21] MEDS: IPRATROPIUM 0.02% 0.5 MG/2.5 ML NEBU INH ONE (13:06)
[2023-12-21] MEDS: methylPREDNISolone SS 125 MG/2 ML VIAL IVP ONE (13:30)
[2023-12-21 13:47] LABS: EOSINOPHILS % (AUTO) 0.1 % (0.0-4.0); HEMATOCRIT 36.9 % (36-48); HEMOGLOBIN 11.7 g/dL (12.0-16.0); LYMPHOCYTES # (AUTO) 0.6 K/uL (2.5-16.5); LYMPHOCYTES % (AUTO) 3.7 % (20.5-51.1); MEAN CORPUSCULAR HEMOGLOBIN 28 pg (27-31); MEAN CORPUSCULAR HGB CONC 32 g/dL (33-37); MEAN CORPUSCULAR VOLUME 86.5 fL (80-94); MONOCYTES # (AUTO) 3.3 K/uL (0.8-1.0); MONOCYTES % (AUTO) 19.4 % (1.7-9.3); NEUTROPHILS # (AUTO) 12.9 K/uL (1.8-7.7); NEUTROPHILS % (AUTO) 76.8 % (42.2-75.2); PLATELET COUNT (AUTO) 654 K/uL (140-450); RED BLOOD CELL COUNT(AUTO) 4.26 MIL/uL (4.20-5.40); RED CELL DISTRIBUTION WIDTH 15.9 % (11.6-13.7); WHITE BLOOD COUNT (AUTO) 16.8 K/uL (4.8-10.8)
[2023-12-21] MEDS: LORazepam 0.5 MG TAB PO ONE (13:55)
[2023-12-21 14:03] LABS: ANION GAP 11.1 (8-16); CALCIUM 9.4 mg/dL (8.5-10.1); CHLORIDE 101 mmol/L (98-107); GLUCOSE 145 mg/dL (74-106); POTASSIUM 4.1 mmol/L (3.5-5.1); SODIUM SERUM 138 mmol/L (136-145); UREA NITROGEN, BLOOD 30 mg/dL (7-18)
[2023-12-21 14:13] LABS: ALBUMIN 3.4 g/dL (3.4-5.0); BILIRUBIN,DIRECT 0.1 mg/dL (0.0-0.3); LACTIC ACID 1.7 mmol/L (0.4-2.0); TOTAL BILIRUBIN 0.3 mg/dL (0.0-1.0); TOTAL PROTEIN, SERUM 7.4 g/dL (6.4-8.2)
[2023-12-21 16:06] LABS: FLU A ANTIGEN negative (NEGATIVE); FLU B ANTIGEN NEGATIVE (NEGATIVE)
[2023-12-21] MEDS ORDERED: CIPR500T4 PO (19:10)
[2023-12-21 19:28] LABS: BILIRUBIN,URINE NEGATIVE (NEGATIVE); BLOOD, URINE NEGATIVE (NEGATIVE); COLOR,URINE YELLOW (YELLOW); LEUKOCYTE ESTERASE ,URINE 2+ (NEGATIVE); NITRITE, URINE NEGATIVE (NEGATIVE); PROTEIN,URINE TRACE (NEGATIVE); UGLUCOSE NEGATIVE (NEGATIVE); UROBILINOGEN,URINE 0.2 EU/dL (0.2 - 1)
[2023-12-21 19:30] LABS: APPEARANCE,URINE SLIGHTLY CLOUDY (CLEAR)
[2023-12-21 19:39] LABS: BACTERIA,URINE 3+ /HPF (None Seen); MUCUS,URINE None Seen /LPF (None Seen); RBC,URINE 0 /HPF (0-5); SQUAMOUS EPITHELIAL CELL,UR 0-3 (FEW) /LPF (0-3 (FEW))
[2023-12-21] MEDS ORDERED: LORA-476 PO (20:42)
[2023-12-21 20:53] VITALS: BP 126/82; PULSE 97; RESP 28; TEMP 97.7; O2SAT 97
== END 2023-12-21 20:53 | disposition home or self-care (01) ==
LOC: MED 12:53
DX: J44.1 Chronic obstructive pulmonary disease with (acute) exacerbation (principal); N39.0 Urinary tract infection, site not specified; Z20.822 Contact with and (suspected) exposure to COVID-19; I10 Essential (primary) hypertension; F17.200 Nicotine dependence, unspecified, uncomplicated; Z90.710 Acquired absence of both cervix and uterus; Z79.899 Other long term (current) drug therapy
CPT/HCPCS: 36415; 71045; 80048; 80076; 81001; 83605; 83880; 84484; 85025; 87040; 87086; 87426; 87804; 93005; 94640; 96374; 99285; J2919; J7613; J7644

== ENCOUNTER 2024-03-17 16:55 | Emergency (ER) | payer MEDICARE ==
[~2024-03-17] VITALS: Ht 157.5 cm; Wt 52.2 kg
[~2024-03-17 16:55] MED LIST changes: +LORA-476 PO
[2024-03-17 16:57] VITALS: BP 128/56; PULSE 91; RESP 16; TEMP 97.9; O2SAT 99
[2024-03-17 17:16] VITALS: O2SAT 99
[2024-03-17 17:34] LABS: BASOPHILS # (AUTO) 0.1 K/uL (0.00-0.22); BASOPHILS % (AUTO) 0.8 % (0.0-2.0); EOSINOPHILS # (AUTO) 0.2 K/uL (0-0.4); HEMATOCRIT 38.1 % (36-48); HEMOGLOBIN 12.5 g/dL (12.0-16.0); LYMPHOCYTES % (AUTO) 12.7 % (20.5-51.1); MEAN CORPUSCULAR HEMOGLOBIN 28 pg (27-31); MEAN CORPUSCULAR HGB CONC 33 g/dL (33-37); MEAN CORPUSCULAR VOLUME 85.7 fL (80-94); MONOCYTES # (AUTO) 1.2 K/uL (0.8-1.0); MONOCYTES % (AUTO) 14.9 % (1.7-9.3); NEUTROPHILS # (AUTO) 5.4 K/uL (1.8-7.7); NEUTROPHILS % (AUTO) 68.6 % (42.2-75.2); PLATELET COUNT (AUTO) 429 K/uL (140-450); RED BLOOD CELL COUNT(AUTO) 4.44 MIL/uL (4.20-5.40); RED CELL DISTRIBUTION WIDTH 15.5 % (11.6-13.7); WHITE BLOOD COUNT (AUTO) 7.9 K/uL (4.8-10.8)
[2024-03-17 17:35] VITALS: TEMP 97.9
[2024-03-17] MEDS: methylPREDNISolone SS 125 MG/2 ML VIAL IVP ONE (17:48)
[2024-03-17] MEDS: ALBUTEROL SULFATE/IPRATROPIU 3 ML SOL IH ONE (17:49)
[2024-03-17 17:51] VITALS: PULSE 77; RESP 18; O2SAT 98
[2024-03-17 18:12] LABS: ALANINE AMINOTRANSFERASE 18 U/L (12-78); ALBUMIN 3.4 g/dL (3.4-5.0); ALKALINE PHOSPHATASE 76 U/L (50-136); ANION GAP 9.8 (8-16); ASPARTATE AMINOTRANSFERASE 17 U/L (15-37); CARBON DIOXIDE 31.3 mmol/L (21-32); CHLORIDE 101 mmol/L (98-107); CREATININE 0.8 mg/dL (0.6-1.3); GLUCOSE 109 mg/dL (74-106); POTASSIUM 4.1 mmol/L (3.5-5.1); SODIUM SERUM 138 mmol/L (136-145); TOTAL BILIRUBIN 0.3 mg/dL (0.0-1.0); TOTAL PROTEIN, SERUM 6.8 g/dL (6.4-8.2); UREA NITROGEN, BLOOD 19 mg/dL (7-18)
[2024-03-17 19:03] LABS: BILIRUBIN,URINE NEGATIVE (NEGATIVE); BLOOD, URINE TRACE-I (NEGATIVE); COLOR,URINE YELLOW (YELLOW); LEUKOCYTE ESTERASE ,URINE 2+ (NEGATIVE); NITRITE, URINE POSITIVE (NEGATIVE); PH,URINE 6.5 (5.0-9.0); PROTEIN,URINE NEGATIVE (NEGATIVE); UGLUCOSE NEGATIVE (NEGATIVE); UROBILINOGEN,URINE 0.2 EU/dL (0.2 - 1)
[2024-03-17 19:04] LABS: APPEARANCE,URINE SLIGHTLY HAZY (CLEAR)
[2024-03-17 19:05] LABS: BACTERIA,URINE 3+ /HPF (None Seen); MUCUS,URINE None Seen /LPF (None Seen); RBC,URINE 0-5 /HPF (0-5); SQUAMOUS EPITHELIAL CELL,UR 4-10 (MOD) /LPF (0-3 (FEW))
[2024-03-17] MEDS ORDERED: DICYCLOMINE HCL LIQUID 10 MG/5 ML UDC ONE (19:23)
[2024-03-17] MEDS ORDERED: ALUMINUM HYD/MAG/SIMETHICONE 30 ML UDC ONE (19:23)
[2024-03-17] MEDS: DICYCLOMINE HCL LIQUID 20 MG, ALUMINUM HYD/MAG/SIMETHICONE 30 ML, LIDOCAINE VISCOUS 2% ... PO ONE (19:25)
[2024-03-17 20:44] VITALS: BP 101/57; PULSE 86; RESP 19; O2SAT 97; O2SAT 98
[2024-03-17] MEDS: LORazepam 2 MG/ML VIAL IVP ONE (20:48)
[2024-03-17] MEDS ORDERED: NITR100C7 PO (21:02)
== END 2024-03-17 22:34 | disposition home or self-care (01) ==
LOC: MED 16:55
DX: J44.1 Chronic obstructive pulmonary disease with (acute) exacerbation (principal); N39.0 Urinary tract infection, site not specified; F41.9 Anxiety disorder, unspecified; I10 Essential (primary) hypertension; F17.200 Nicotine dependence, unspecified, uncomplicated; Z79.899 Other long term (current) drug therapy
CPT/HCPCS: 36415; 71045; 80053; 81001; 83880; 84484; 85025; 87086; 87186; 93005; 94640; 96374; 96375; 99285; J2060; J2919; Q0092

== ENCOUNTER 2024-04-05 06:53 | Emergency (ER) | payer MEDICARE ==
[~2024-04-05] VITALS: Ht 162.6 cm; Wt 47.6 kg
[~2024-04-05 06:53] MED LIST changes: +NITR100C7 PO
[2024-04-05 06:55] VITALS: BP 144/77; PULSE 84; RESP 20; TEMP 98.6; O2SAT 89
[2024-04-05] MEDS: methylPREDNISolone SS 125 MG/2 ML VIAL IVP ONE (07:48)
[2024-04-05] MEDS: ONDANSETRON 4 MG/2 ML VIAL IVP ONE (07:48)
[2024-04-05 07:49] LABS: BASOPHILS % (AUTO) 0.5 % (0.0-2.0); EOSINOPHILS # (AUTO) 0.3 K/uL (0-0.4); EOSINOPHILS % (AUTO) 3.6 % (0.0-4.0); HEMATOCRIT 38.8 % (36-48); HEMOGLOBIN 12.5 g/dL (12.0-16.0); LYMPHOCYTES % (AUTO) 11.6 % (20.5-51.1); MEAN CORPUSCULAR HEMOGLOBIN 28 pg (27-31); MEAN CORPUSCULAR HGB CONC 32 g/dL (33-37); MEAN CORPUSCULAR VOLUME 85.9 fL (80-94); MONOCYTES # (AUTO) 1.1 K/uL (0.8-1.0); MONOCYTES % (AUTO) 12.6 % (1.7-9.3); NEUTROPHILS % (AUTO) 71.7 % (42.2-75.2); PLATELET COUNT (AUTO) 353 K/uL (140-450); RED BLOOD CELL COUNT(AUTO) 4.52 MIL/uL (4.20-5.40); RED CELL DISTRIBUTION WIDTH 15.8 % (11.6-13.7); WHITE BLOOD COUNT (AUTO) 8.4 K/uL (4.8-10.8)
[2024-04-05] MEDS: ALBUTEROL SULFATE/IPRATROPIU 3 ML SOL IH ONE (07:49)
[2024-04-05 08:11] VITALS: PULSE 77; RESP 18; O2SAT 99
[2024-04-05 08:11] LABS: ALANINE AMINOTRANSFERASE 20 U/L (12-78); ALBUMIN 3.2 g/dL (3.4-5.0); ALKALINE PHOSPHATASE 73 U/L (50-136); ASPARTATE AMINOTRANSFERASE 17 U/L (15-37); CALCIUM 8.6 mg/dL (8.5-10.1); CHLORIDE 101 mmol/L (98-107); CREATININE 0.8 mg/dL (0.6-1.3); GLUCOSE 110 mg/dL (74-106); SODIUM SERUM 137 mmol/L (136-145); TOTAL BILIRUBIN 0.3 mg/dL (0.0-1.0); TOTAL PROTEIN, SERUM 6.6 g/dL (6.4-8.2); UREA NITROGEN, BLOOD 17 mg/dL (7-18)
[2024-04-05 08:14] LABS: LIPASE 23 U/L (16-77)
[2024-04-05 08:19] LABS: ANION GAP 7.9 (8-16); CARBON DIOXIDE 32.1 mmol/L (21-32)
[2024-04-05 08:29] LABS: FLU A ANTIGEN negative (NEGATIVE); FLU B ANTIGEN negative (NEGATIVE)
[2024-04-05 11:20] LABS: APPEARANCE,URINE CLEAR (CLEAR); BILIRUBIN,URINE NEGATIVE (NEGATIVE); BLOOD, URINE NEGATIVE (NEGATIVE); COLOR,URINE YELLOW (YELLOW); LEUKOCYTE ESTERASE ,URINE NEGATIVE (NEGATIVE); NITRITE, URINE NEGATIVE (NEGATIVE); PH,URINE 6.5 (5.0-9.0); PROTEIN,URINE NEGATIVE (NEGATIVE); UGLUCOSE NEGATIVE (NEGATIVE); UROBILINOGEN,URINE 0.2 EU/dL (0.2 - 1)
[2024-04-05] MEDS ORDERED: PRED20TA5 PO (11:29)
[2024-04-05] MEDS ORDERED: ONDA-188 SL (11:37)
[2024-04-05 12:04] VITALS: BP 122/48; PULSE 84; RESP 20; TEMP 97.8; O2SAT 94
== END 2024-04-05 12:04 | disposition home or self-care (01) ==
LOC: MED 06:53
DX: J44.1 Chronic obstructive pulmonary disease with (acute) exacerbation (principal); K80.20 Calculus of gallbladder without cholecystitis without obstruction; E11.9 Type 2 diabetes mellitus without complications; I10 Essential (primary) hypertension; Z20.822 Contact with and (suspected) exposure to COVID-19; Z79.899 Other long term (current) drug therapy; Z86.73 Personal history of transient ischemic attack (TIA), and cerebral infarction without residual deficits
CPT/HCPCS: 36415; 71045; 74176; 76705; 80053; 81003; 83690; 83880; 84484; 85025; 87426; 87804; 93005; 94640; 96374; 96375; 99285; J2405; J2919; Q0092